=== PATIENT | female | born 1965 | race African-American/Black ===

== ENCOUNTER 2018-06-26 07:33 | Emergency (ER) | payer SELFPAY ==
[~2018-06-26] VITALS: Ht 162.6 cm; Wt 54.0 kg
[2018-06-26] MEDS ORDERED: KETOROLAC 15MG/ML VIAL IM ONE (10:15)
[2018-06-26 12:19] VITALS: BP 108/67
== END 2018-06-26 12:38 | disposition home or self-care (01) ==
LOC: ER 07:33
DX: S20.212A Contusion of left front wall of thorax, initial encounter (principal); S20.211A Contusion of right front wall of thorax, initial encounter; Z88.3 Allergy status to other anti-infective agents; Z88.5 Allergy status to narcotic agent; Z88.0 Allergy status to penicillin; Z88.8 Allergy status to other drugs, medicaments and biological substances; Z90.710 Acquired absence of both cervix and uterus; V43.52XA Car driver injured in collision with other type car in traffic accident, initial encounter; W22.11XA Striking against or struck by driver side automobile airbag, initial encounter; Y93.89 Activity, other specified; Y92.488 Other paved roadways as the place of occurrence of the external cause
CPT/HCPCS: 71046; 71250; 96372; 99284; J1885